=== PATIENT | female | born 1955 | race Caucasian/White ===

== ENCOUNTER 2018-12-10 08:49 | Day surgery (SDC) ==
[2018-12-10] MEDS: TETRACAINE 0.5% UNIT-DOSE OP PRN ×3 (09:55→11:08)
[2018-12-10] MEDS: BETADINE OPTH PREP OP PRN ×2 (09:56→11:00)
[2018-12-10] MEDS: CYCLOGYL 2% OPTH OP PRN ×3 (09:57→10:10)
[2018-12-10] MEDS ORDERED: BSS WITH EPINEPHRINE OP ONE (10:15)
[2018-12-10] MEDS ORDERED: DEX-MOXI-KETOR OPTH INJ 1/0.5/0.4 MG/ML IO ONE (10:15)
[2018-12-10] MEDS ORDERED: ZOFRAN 4 MG/2 ML IVP ONE (10:15)
[2018-12-10] MEDS ORDERED: LIDOCAINE 1%/PHENYLEPHRINE 1.5% BSS (SURGERY) INTRAOCULA ONE (10:15)
[2018-12-10] MEDS ORDERED: ZOFRAN 4 MG/2 ML ONE (11:02)
[2018-12-10] MEDS ORDERED: DIPRIVAN 20 ML VIAL IVP ONE (11:02)
[2018-12-12 06:36] VITALS: TEMP 97.6
[2018-12-12 15:52] VITALS: BP 125/67
== END 2018-12-10 12:05 | disposition home or self-care (01) ==
LOC: SURG 08:49
PROVIDERS: ATTEND Ophthalmology
DX: H25.12 Age-related nuclear cataract, left eye (principal)